=== PATIENT | male | born 1960 | race Caucasian/White ===

== ENCOUNTER → 2020-07-11 | Outpatient (CLI) | payer OTHER ==
[2020-07-11 21:39] LABS: HCT 46.6 % (39.6-50.0); HGB 15.3 g/dL (13.0-17.0); MCH 32.8 pg (27.0-32.0); MCHC 32.8 g/dL (32.0-37.0); MCV 99.8 fL (80.0-97.0); Mean Platelet Volume 9.6 fL (9.5-12.2); Platelet Count 337 X 10*3/uL (140-440); RBC 4.67 X 10*6/uL (4.40-5.60); RDW 12.8 % (11.5-14.5); WBC 5.46 X 10*3/uL (4.50-10.00)
[2020-07-12 02:02] LABS: African American GFR (CKD) 63.3 (60.0-200.0); BUN/Creat Ratio 12.14 Ratio (12.00-20.00); Calcium 10.4 mg/dL (8.7-10.3); Non-African American GFR(CKD) 54.6 (60.0-200.0); Potassium 5.2 mmol/L (3.5-5.5)
== END | disposition home or self-care (01) ==
LOC: LABWHC1 10:40
PROVIDERS: ATTEND Internal Medicine Cardiovascular Disease
DX: I10 Essential (primary) hypertension (principal)
CPT/HCPCS: 36415; 80048; 84443; 85027